=== PATIENT | male | born 1960 | race Caucasian/White ===

== ENCOUNTER 2018-06-18 10:55 | Inpatient (IN) ==
[2018-06-18 11:21] VITALS: BMI 45.4
[2018-06-18] MEDS ORDERED: WARFARIN - PHARMACY CONSULT MC ONE (12:09)
[2018-06-18] MEDS ORDERED: VANCOMYCIN - PHARMACY CONSULT MC ONE (12:12)
[2018-06-18] MEDS ORDERED: NS 1,000 ML IV ONE (14:07)
[2018-06-18] MEDS: HYDROCODONE/APAP 5mg/325mg TABLET PO PRN (14:07)
[2018-06-18] MEDS ORDERED: CEFTRIAXONE 1 G in NS 100 ML IV SCH (14:15)
[2018-06-18] MEDS ORDERED: MORPHINE SULFATE 2mg INJECTION IVP PRN (14:19)
[2018-06-18] MEDS ORDERED: ONDANSETRON 4 MG/2 ML INJECTION IVP PRN (14:19)
--- NOTE | 2018-06-18 14:25 | History & Physical Report ---
History of Present Illness Date: 06/18/18 Chief complaint: fever, leg pain HPI: Patient is a 57-year-old male who presented to Dr. Hwang's office this morning with complaint of leg pain and swelling which started last night. This was accompanied by a fever as well. Dr. Hwang evaluated patient and recommended direct admission for inpatient treatment of cellulitis given his comorbidities including artificial aortic valve and morbid obesity. Patient reports up until last night he was feeling well. He had no injury to the leg which he is aware of. He does have a remote history of surgery to the Achilles tendon secondary to rupture. He is on Coumadin for his artificial valve. Has no history of DVT. No previous history of cellulitis. He took Tylenol this morning for the pain. He is currently complaining of significant pain. Review of Systems All systems PM: 10-point ROS was reviewed, no additional remarkable complaints except (right lower leg pain, swelling, fever, chronic shortness of breath with exertion, slight cough (chronic per patient)) Past Medical History Medical History: Medical History (Last Reviewed 06/18/18 @ 10:31 by Win Pena LPN) Dyslipidemia HTN (hypertension) Medical History Updates: Sleep apnea, morbid obesity, artificial aortic valve, history of kidney cancer Surgical History: aortic valve replaced 06/25. kidney reomved - hx of kidney ca 05/25. ruptured achilles tendon on R leg - surgery 2007. tonsilectomy as a child. vasectomy 1989. Valve aneurysm repair: Dr. Hoang. Content Checker: Dr. Jose Kevin. Kidney: Dr. Kwok. Kidney surgery: Dr. Patel. Renal inusfficiency/Nephrology: Dr. 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 Hwang Content Checker- Dr. Kevin Medications Home Medications Medication Instructions Recorded Confirmed Type aspirin 81 mg tablet,delayed 81 mg PO DAILY tab 07/16/17 06/18/18 History release Norvasc (amlodipine) 10 mg tablet 10 mg PO DAILY #90 tab 05/18/18 06/18/18 Rx Warfarin Sodium [Coumadin] 10 mg PO DAILY 06/18/18 06/18/18 History Allergies Allergy/AdvReac Type Severity Reaction Status Date / Time Iodinated Contrast- Oral and Allergy Severe RASH Verified 06/18/18 11:35 IV Dye Exam Vital Signs: Temperature 101.7 F H 06/18/18 11:20 Pulse Rate 112 H 06/18/18 11:20 Respiratory Rate 22 06/18/18 14:07 Blood Pressure 158/72 H 06/18/18 11:20 Pulse Oximetry 94 06/18/18 11:20 Height/Weight/BMI: Height 1.85 m Weight 156.2 kg Body Mass Index 45.4 - Constitutional Present: no acute distress, well nourished, well developed, morbidly obese - Routine HEENT Exam Head: Present: normocephalic, atraumatic Eye: Present: EOMI, PERRL ENT: Present: mucous membranes moist, oropharynx clear - Routine Neck Exam Present: supple. Absent: lymphadenopathy, thyromegaly - Routine Respiratory Exam Present: CTA bilaterally. Absent: wheezes - Routine Cardiovascular Exam Present: RRR, murmur, click - Routine Abdominal Exam Present: soft, normoactive bowel sounds. Absent: tenderness, distended - Routine Extremities Exam Present: normal capillary refill Comments: Right lower extremity with warmth, erythema and edema extending from ankle to distal to the knee. He is most tender posteriorly mid calf and distally. He has an unroofed vesicle which is draining clear fluid located on the scar from his previous Achilles surgery. There is no evidence of abscess. He has pitting edema bilaterally right greater than left. Edema on the left is chronic. He also has erythema and skin changes on the left lower extremity from chronic venous stasis. - Routine Skin Exam Present: dry, warm - Routine Neurological Exam Present: alert, oriented X3, CN II-XII intact - Routine Psychiatric Exam Present: normal affect, cooperative Results - Labs CBC & Chem 7: 06/18/18 13:00 06/18/18 13:00 Microbiology Results: Microbiology 06/18/18 13:14 Peripheral/Iv Start Blood Culture - Preliminary Culture Initiated - Results Pending 06/18/18 13:00 Peripheral/Iv Start Blood Culture - Preliminary Culture Initiated - Results Pending Assessment and Plan (1) Cellulitis Current visit: Yes Status: Acute Assessment and Plan: Assessment Sepsis (SIRS: Fever, leukocytosis. Source: Skin) - lactate normal Right lower extremity cellulitis Morbid obesity-BMI 45 Hypertension Artificial aortic valve-chronic Coumadin therapy Sleep apnea History of kidney cancer (right nephrectomy) JOSÉ on CKD -POA Plan Admit, observation for IV antibiotics for treatment of right lower extremity cellulitis. CBC, CMP, INR, lactate and blood cultures drawn on admission. Initiate vancomycin and ceftriaxone for treatment of cellulitis. Pharmacy consult for vancomycin. Bolus one liter normal saline. Pharmacy to manage Coumadin. Continue amlodipine for hypertension. Coumadin for DVT prophylaxis (and artificial valve) CBC and BMP in a.m. to follow leukocytosis and renal function. [place], morphine PRN pain. Full code Dr. Hwang-PCP. 06/18/2018-3:45 PM-I examined the patient independently. I reviewed this chart, the patient history, and the CARD STRIPPER's/PA's documented findings as above. We discussed and formulated the assessment and plan as above with the additions below.-Dr. Ji The patient was seen this afternoon in his room. He states the pain in his leg started this morning and woke him up from sleep. He is having pain in his right groin and pain in the left calf and down into his foot. He states the pain was an 8 on a scale of 1-10 but is now a 5. He has been diaphoretic and nauseated. He vomited this morning. He was doing a lot of gardening recently and thought his leg might be painful from that and then he noticed the redness. He did not have any skin wounds or punctures while gardening. He does have a very small area of skin breakdown over the right Achilles tendon where he had previously had surgery and has a scar. There is very minimal serosanguineous drainage on the dressing that was placed over this area. The patient denies chest pain or shortness of breath. He is obese and has sleep apnea but has not tolerated CPAP in the past. On exam he is alert and in mild distress secondary to pain. HEENT reveals sclerae to be anicteric and oropharynx is moist. Neck is supple. Chest is clear to auscultation. Cardiovascular reveals a regular rate and rhythm. Abdomen is soft and nontender. Left lower extremity reveals some chronic venous stasis changes over the calf and +1 edema in his foot. Right lower extremity reveals chronic venous stasis changes in the. He has erythema of the entire calf and spreading down to the medial portion of his foot. He has +1-2 edema of the right foot. The right lower extremity is warm to touch and very tender to touch compared to the left lower extremity. He has some splotchy erythema in the right medial thigh and tender adenopathy in the groin on the right. Lab reveals a white count of 24.3 with 12% bands and 80% neutrophils Lactate was normal at 1.7. Bicarbonate was 29. BUN 24. Creatinine 1.6. Impression Sepsis Cellulitis right lower extremity-rapidly progressing Chronic lymphedema of the legs Right leg pain secondary to cellulitis Prosthetic aortic valve Chronic anticoagulation with Coumadin-INR is therapeutic Chronic kidney disease Morbid obesity Obstructive sleep apnea for which he has not tolerated CPAP IV contrast allergy Plan Admit as inpatient. I think the patient will need more than 2 midnights overnight in the hospital for treatment of his cellulitis with sepsis. Vancomycin and Rocephin were initiated. May need further antibiotic adjustment. Blood cultures were obtained. Check C-reactive protein and CPK CT right lower extremity to rule out necrotizing fasciitis Repeat lactate Continue IV fluids Monitor on oximetry with obstructive sleep apnea and use of narcotics for pain control DVT Prophylaxis: Coumadin - Physician Narrative Narrative: Date: 06/18/18 Time: 1421 Hospital Course Summary Disclaimer: The visit summary below is not to be considered part of the above Progress Note. Hospital Course: 06/18/18 Admit, observation for IV antibiotics for treatment of right lower extremity cellulitis. CBC, CMP, INR, lactate and blood cultures drawn on admission. Initiate vancomycin and ceftriaxone for treatment of cellulitis. Pharmacy consult for vancomycin. Bolus one liter normal saline. Pharmacy to manage Coumadin. Continue amlodipine for hypertension. Coumadin for DVT prophylaxis (and artificial valve) CBC and BMP in a.m. to follow leukocytosis and renal function. [place], morphine PRN pain. Full code Dr. Hwang-PCP.
--- NOTE | 2018-06-18 14:43 | Pharmacy Consult-Antibiotics ---
Pharmacy Consult-Vancomycin - Laboratory Information WBC 24.3 T/MM3 (4.5-11.0) H 06/18/18 13:00 BUN 24.0 MG/DL (9-20) H 06/18/18 13:00 Creatinine 1.6 mg/dL (0.8-1.5) H 06/18/18 13:00 VANCOMYCIN THERAPY: Dx: RLE Cellulitis. Comorbidities. Will adjust for upper range of therapeutic levels: 15-20mcg/ml Renal Fx compromised. Will watch closely. Start with VANCOMYCIN 2000mg IV LOADING DOSE now, then 1500mg IV q12hr starting this evening. Will confirm levels prior to dose tomorrow am. Thank you
--- NOTE | 2018-06-18 14:50 | Pharmacy Consult ---
Pharmacy Consult-Warfarin - Laboratory Information 06/18/18 06/18/18 06/18/18 13:00 13:00 13:14 Hgb 14.7 Hct 43.7 INR 2.60 H AST 41 ALT 33 Albumin 4.1 WARFARIN THERAPY: Hx of artificial aortic valve replacement 2009. Warfarin home dose is 10mg daily. Presents within therapeutic range. Will continue the warfarin at 10mg today. No drug-drug interactions. Anticoagulation therapy is stable at this time. Thank you
[2018-06-18] MEDS ORDERED: METOCLOPRAMIDE 10mg/2ml INJECTION IVP PRN (15:25)
[2018-06-18] MEDS: ACETAMINOPHEN 500 MG TABLET PO PRN ×2 (15:27→22:05)
[2018-06-18] MEDS ORDERED: WARFARIN 5 MG TABLET PO ONE (17:00)
--- NOTE | 2018-06-18 17:12 | General Surgery Consult Note ---
Consult date: 06/18/18 Attending Physician: Leigh Ji MD [facility], [facility] Patient Stated Medical History Hearing Loss Yes Cardiac Arrhythmia Yes Hypotension Yes Asthma Yes Pneumonia Yes: young Sleep Apnea Yes Gastroesophageal Reflux Yes: 10 years ago Disease Hx Incontinence Yes Hx Kidney Stones Yes: years ago Osteoarthritis Yes Cellulitis Yes: currently Clinic Medical History (Last Reviewed 06/18/18 @ 10:31 by Win Pena LPN) Dyslipidemia (Acute Medical) HTN (hypertension) (Acute Medical) Medical History Updates: Sleep apnea, morbid obesity, artificial aortic valve, history of kidney cancer Surgical History: aortic valve replaced 06/25. kidney reomved - hx of kidney ca 05/25. ruptured achilles tendon on R leg - surgery 2007. tonsilectomy as a child. vasectomy 1989. colonoscopy tubular adenoma 04/23/2010 [facility]. EGD with dilatation esophagitis, gastritis, H.Pylori neg 04/23/2010 [facility]. Valve aneurysm repair: Dr. Hoang. Baggage Porter: Dr. Jose Kevin. Kidney: Dr. Kwok. Kidney surgery: Dr. Patel. Renal inusfficiency/Nephrology: Dr. 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 Current residence: Apartment/Private Home Medications Home Medications Medication Instructions Recorded Confirmed Type aspirin 81 mg tablet,delayed 81 mg PO DAILY tab 07/16/17 06/18/18 History release Norvasc (amlodipine) 10 mg tablet 10 mg PO DAILY #90 tab 05/18/18 06/18/18 Rx Warfarin Sodium [Coumadin] 10 mg PO DAILY 06/18/18 06/18/18 History Allergies Allergy/AdvReac Type Severity Reaction Status Date / Time Iodinated Contrast- Oral and Allergy Severe RASH Verified 06/18/18 11:35 IV Dye Review of Systems 10-point ROS: negative except for HPI and the following: - General General: Present: fever, chills - Respiratory Respiratory: Present: wheezing, difficulty breathing (with exertion), cough, sleep apnea - Musculoskeletal Musculoskeletal: Present: other (leg cramps) - Hematologic/Lymphatic Hematologic/Lymphatic: Present: easy bruising, use of blood thinners (warfarin ) - Vital Signs Last Vital Signs Temp 101.4 F H 06/18/18 16:32 Pulse 101 H 06/18/18 16:32 Resp 20 06/18/18 16:32 BP 129/57 06/18/18 16:32 Pulse Ox 90 06/18/18 16:32 - Laboratory Result Diagrams: 06/18/18 13:00 06/18/18 13:00 - Microbiogy Microbiology 06/18/18 13:14 Peripheral/Iv Start Blood Culture - Preliminary Culture Initiated - Results Pending 06/18/18 13:00 Peripheral/Iv Start Blood Culture - Preliminary Culture Initiated - Results Pending General Surgery Results - Results Labs: 06/18/18 13:00 06/18/18 13:00 Microbiology: Microbiology 06/18/18 13:14 Peripheral/Iv Start Blood Culture - Preliminary Culture Initiated - Results Pending 06/18/18 13:00 Peripheral/Iv Start Blood Culture - Preliminary Culture Initiated - Results Pending
--- NOTE | 2018-06-18 17:19 | CT Scan Report ---
Indication: Right leg swelling and pain with edema, evaluate for necrotizing fasciitis PROCEDURE: CT LE RT wo con: Encounter: Initial Comparison: None Technique: Axial CT images were performed through the right lower extremity without intravenous contrast. Coronal and sagittal two-dimensional reformats. Automated Exposure Control and Iterative Reconstruction dose reducing techniques were utilized. Findings: Imaging shows no evidence of subcutaneous gas. There are presumably reactive mildly prominent right inguinal lymph nodes measuring up to 1 cm in short axis dimension. There are additional enlarged lymph nodes in the right thigh medially measuring up to 1.8 cm in short axis dimension with surrounding soft tissue inflammation and induration. There is no loculated fluid collection or abscess appreciated. Bony structures are intact. No acute fracture or lytic osseous lesion. Below the knee there is fairly diffuse subcutaneous edema which becomes progressively worse towards the ankle. Again no subcutaneous gas is identified. There is mild fatty atrophy of the calf musculature. No hematoma. No localized fluid collection identified. No lytic bony lesions seen. The remaining muscular attenuation is normal. Impression: Severe cellulitis in the lower leg and calf with associated reactive adenopathy and infection tracking along the medial aspect of the right thigh. No subcutaneous gas or abscess identified. .
[2018-06-18] MEDS: POLYETHYL GLYCOL 3350 17gm PACKET PO SCH (18:10)
[2018-06-18] MEDS ORDERED: WARFARIN 5 MG TABLET PO SCH (20:00)
[2018-06-18] MEDS: PIPERACILLIN/TAZOBACTAM 3.375 GM in NS 100 ML IV SCH (20:03)
--- NOTE | 2018-06-18 20:52 | Consultation ---
DATE OF CONSULTATION 06/18/2018 FINDINGS Mr. Eubanks is a 57-year-old gentleman whom I was asked to see today as a result of marked tenderness and cellulitis involving his right lower extremity. Upon questioning the patient he informs me that he has had "leg problems" for a number of years. He states that his legs have been somewhat discolored for several years. The patient did share with me that in the past he has suffered from a rupture of his right Achilles. I questioned the patient whether or not he has had any history for open wounds involving his lower extremities. Patient states that he has had a wound involving his right lower extremity over the last several months. He contributes this to a "bad sunburn." Patient states that he had noticed some slight discomfort within his right lower extremity earlier this week but this morning at 4 o'clock he was awakened with severe pain occurring in his right calf region. He states it felt as if he was having a "bad cramp." Patient states that the pain was quite severe in nature. He also stated that he began to feel somewhat chilled in nature. Patient states that he then presented to his primary care physician for further evaluation and has subsequently been admitted to our hospital for further care. The pain involving his right lower extremity is made worse upon palpation. Pain is aggravated with attempt at ambulation. Discomfort is somewhat alleviated by "lying down and resting." Discomfort involving the right calf does radiate up into his right thigh region as well. PAST MEDICAL HISTORY, PAST SURGICAL HISTORY, MEDICATIONS, ALLERGIES, SOCIAL HISTORY, FAMILY HISTORY, REVIEW OF SYSTEMS Performed by my nurse practitioner, Robert Rodrigues APRN. PHYSICAL EXAMINATION GENERAL: Mr. Eubanks is a 57-year-old gentleman who does appear somewhat ill. He did appear to be having a component of fever and chills. He was requesting an additional blanket. VITAL SIGNS: Temperature 101.4, pulse elevated at 101. Respiratory rate 20. Blood pressure 129/57, SAO2 90% on room air. HEENT: Normocephalic. Pupils are equally round and react to light and accommodation. CHEST: Audible wheezes were noted even without the stethoscope. Upon auscultation the patient was found have bilateral rhonchi. HEART: Rate and rhythm. Tachycardia was noted. ABDOMEN: Soft, nontender. No tenderness noted. No evidence for hepatosplenomegaly or other abnormal masses. EXTREMITIES: Visualization of the lower extremities does reveal the skin to be hemosiderin-laden consistent with chronic venous insufficiency. There is a Mepilex dressing present overlying the right posterior ankle region. One could see some drainage upon the Mepilex. Upon removing the Mepilex dressing from the right posterior ankle one can see a prior surgical incision consistent with his prior history of a ruptured Achilles tendon. There is an incision perhaps about 6-7 cm long overlying the anatomic location of the Achilles tendon. Along this incision there is a small opening that is draining some clear fluid from the opening itself. Visualization of the skin does not reveal any ecchymotic changes of the skin. There are no "purplish-like blisters" upon the skin. The right calf and right ankle region does appear edematous and more erythematous in nature in comparison to the left. Upon palpation of the right anterior tibial region and calf the skin is warm to the touch, consistent with cellulitis. Palpation does elicit tenderness to the patient but the patient did not experience severe pain upon palpation. No evidence for subcutaneous crepitus was noted upon palpation. Upon palpation of the right thigh no significant tenderness was noted. No evidence for subcutaneous crepitus was appreciated. NEURO: Cranial nerves II-XII grossly intact. Patient is without focal motor or sensory deficits. LABORATORY/RADIOGRAPHIC EVALUATION The patient had a white count of 24,000 upon admission. Hemoglobin is 14.7. He did have a significant left shift with 80% neutrophils and 12% bands. CMP was obtained and his BUN and creatinine were elevated at 24.0 and 1.6, respectively. CRP was elevated at 52.9. Total creatinine kinase was elevated at 32. Procalcitonin level was elevated at 12.73. Plasma lactate level was normal at 0.4. Blood cultures have been obtained and are pending at time of dictation. The patient did have a CT scan of his right lower extremity. There was no evidence for subcutaneous air/gas to suggest necrotizing fasciitis. There was severe cellulitis noted involving the lower extremity with associated reactive adenopathy and infection tracking along the medial aspect of the right thigh. Again, no subcutaneous gas or abscess was identified. ASSESSMENT 57-year-old male with history for chronic venous insufficiency involving lower extremities who presents with marked cellulitis involving right lower extremity with associated sepsis. Patient with associated medical comorbidities including morbid obesity, hypertension, artificial aortic valve, sleep apnea, history for kidney cancer, and a history for chronic kidney disease. Patient without radiographic or physical findings to suggest necrotizing fasciitis. PLAN I informed the patient that from a physical examination standpoint I did not feel that he was suffering from necrotizing fasciitis. He does, however, have a severe infection involving his right lower extremity. CT scan did not reveal any definitive evidence for necrotizing fasciitis. I am concerned, however, with the degree of cellulitis that is present but I do not feel at this point in time we need to proceed with emergent exploration of his lower extremity. I would recommend that we broaden his antibiotic coverage and place him on Zosyn in place of the Kefzol and continue with vancomycin for possible MRSA. I would recommend that we go ahead and culture the drainage from the right posterior ankle region. Hopefully with antibiotic therapy his leukocytosis and right lower extremity discomfort/pain will improve. Will continue to follow the patient closely. If cellulitis would progressively become worse or his clinical status worsens we may potentially proceed with surgical exploration of the right calf to rule in or rule out necrotizing fasciitis with more certainty. Will continue to follow the patient closely. JIMENEZ
[2018-06-19] MEDS ORDERED: CEFAZOLIN 1 G in NS 100 ML IV SCH (01:00)
[2018-06-19] MEDS: PIPERACILLIN/TAZOBACTAM 3.375 GM in NS 100 ML IV SCH ×5 (01:36→23:37)
[2018-06-19] MEDS: HYDROCODONE/APAP 5mg/325mg TABLET PO PRN ×2 (04:32→11:28)
[2018-06-19] MEDS: NS 1,000 ML IV SCH ×2 (06:04→21:08)
[2018-06-19] MEDS: POLYETHYL GLYCOL 3350 17gm PACKET PO SCH (08:06)
[2018-06-19] MEDS: ASPIRIN *EC* 81 MG TABLET PO SCH (08:07)
[2018-06-19] MEDS ORDERED: AMLODIPINE 10 MG TABLET PO SCH (09:00)
--- NOTE | 2018-06-19 09:08 | Pharmacy Consult ---
Pharmacy Consult-Warfarin - Laboratory Information 06/18/18 06/18/18 06/18/18 13:00 13:00 13:14 Hgb 14.7 Hct 43.7 INR 2.60 H AST 41 ALT 33 Albumin 4.1 06/19/18 06/19/18 04:11 04:11 Hgb 13.8 Hct 42.7 INR 2.63 H AST ALT Albumin - Consult Information COUMADIN CONSULT (RECURRING): 57 yr old male 6'1" 160.8kg admitted for cellulitis. He has an artificial aortic valve. His home med dose of warfarin is 10 mg daily. Therapeutic INR range is 2-3. He is currently on Zosyn and Vancomycin for his cellulitis. These antibiotics can cause his INR to increase. DATE INR DOSE 06/18 2.60 10 MG 06/19 2.63 Will give 7.5 MG Warfarin today. Pharmacy will continue to monitor the INR and adjust the warfarin dose as needed. Since the antibiotics were started yesterday, it will take a couple of days to see the effect on the INR. Thank you. Analy Vallejo, MarijaD
--- NOTE | 2018-06-19 09:52 | Progress Note ---
- Date 06/19/18 Subjective: 57-year-old male who presented to Dr. Hwang's office the morning of admission with complaint of leg pain and swelling which started the night prior. This was accompanied by a fever. Dr. Hwang evaluated patient and recommended direct admission for inpatient treatment of cellulitis given his comorbidities including artificial aortic valve and morbid obesity. Patient reports up until the night prior he was feeling well. He had no injury to the leg which he is aware of. He does have a remote history of surgery to the Achilles tendon secondary to rupture. He is on Coumadin for his artificial valve. Has no history of DVT. No previous history of cellulitis. He took Tylenol this morning for the pain. When seen by me this am, he is resting in bed. Oxygen by nasal cannula in place. He does report having used the BiPAP for a while last night. Is approximately 3 hours recorded while he was on the BiPAP. He denies feeling short of breath. He is not been having any fever since 4 AM at which time it was 101.2. He denies lightheadedness or dizziness. He denies cough or sputum production. He denies any chest pain, or pressure. He denies palpitations. He denies any nausea, vomiting or diarrhea. He reports having a bowel movement yesterday. Eating well. He is up to the bathroom in the room only. He states his legs do hurt when he is bearing weight. He denies any urinary issues. His legs are still painful and swollen but appear to be slightly better with more receding erythema from the outlines drawn on his legs particularly on the right. Objective Vital signs: Temperature 98.6 F 06/19/18 07:10 Pulse Rate 88 06/19/18 07:10 Respiratory Rate 16 06/19/18 07:10 Blood Pressure 141/67 H 06/19/18 07:10 Pulse Oximetry 93 06/19/18 09:24 Height/Weight/BMI: Height 1.85 m Weight 160.8 kg Body Mass Index 45.4 Comments: Gen: alert and oriented. NAD. Falls asleep easily Skin: warm and dry, venous stasis discoloration of bilateral lower extremities. Erythema of the bilateral lower extremities, right >left. Warm to touch, particularly on the right lower extremity HEENT: NC/AT PERRL, EOMI, Sclera, lids and conjunctiva wnl. MMM. OP clear. Neck: short, thick, No JVD, Carotids 2+ without bruits. Lungs: diminished, clear without rales, rhonchi or wheezes CV: slightly irregular, soft murmur, no rubs or gallops. DP pulses 1+, radial pulses 2+, 2+ edema bilaterally Abd: obese, soft. +BS, NT/ND. MS: TRIPP Neuro: No focal deficit Psy: Appropriate mood and affect Results - Labs CBC & Chem 7: 06/19/18 04:11 06/19/18 04:11 Microbiology Results: Microbiology 06/18/18 18:50 Leg, Right Lower Superficial Wound Culture - Preliminary Culture Initiated - Results Pending 06/18/18 13:14 Peripheral/Iv Start Blood Culture - Preliminary Culture Initiated - Results Pending 06/18/18 13:00 Peripheral/Iv Start Blood Culture - Preliminary Culture Initiated - Results Pending Assessment and Plan (1) Cellulitis Current visit: Yes Status: Acute Assessment and Plan: Assessment and plan: sepsis -resolving -skin source with right lower extremity cellulitis -wound culture showing staph aureus, awaiting sensitivities -patient maintained on vancomycin and Zosyn -blood cultures are still pending Right lower extremity cellulitis -wound care -IV vancomycin and Zosyn -CRP markedly elevated but CT scan negative for evidence of necrotizing fasciitis Hypertension -perhaps amlodipine isn't the best option due to his edema -will try Coreg for alpha and beta benefits as he has plenty of HR Bilateral lower extremity edema -likely at least in part related to noncompliance on CPAP -silvina wrap to bilateral lower extremities -unknown diastolic function, systolic function or right heart status, no echo documented since 2009 prior to his surgery -consider echo if not done elsewhere in the recent past Chronic hypoxia -on 3 L oxygen by nasal cannula currently Obstructive sleep apnea -states he no longer has a machine at home -would certainly benefit from having one and using it Acute on chronic kidney disease -IV fluids -follow closely with vancomycin dosing -single kidney as he is post right nephrectomy due to renal cell carcinoma in 2009 Valvular heart disease -that is post mechanical AVR in 2010 -chronic Coumadin anticoagulation -INR therapeutic Prophylaxis -Coumadin Full code Dr. Hwang-PCP. DVT Prophylaxis: Coumadin - Physician Narrative Narrative: Date: 06/19/18 Time: 948 Hospital Course Summary Disclaimer: The visit summary below is not to be considered part of the above Progress Note. Hospital Course: 06/18/18 Admit, observation for IV antibiotics for treatment of right lower extremity cellulitis. CBC, CMP, INR, lactate and blood cultures drawn on admission. Initiate vancomycin and ceftriaxone for treatment of cellulitis. Pharmacy consult for vancomycin. Bolus one liter normal saline. Pharmacy to manage Coumadin. Continue amlodipine for hypertension. Coumadin for DVT prophylaxis (and artificial valve) CBC and BMP in a.m. to follow leukocytosis and renal function. [place], morphine PRN pain. Full code Dr. Hwang-PCP.
--- NOTE | 2018-06-19 10:41 | Pharmacy Consult-Antibiotics ---
Pharmacy Consult-Vancomycin - Laboratory Information WBC 21.0 T/MM3 (4.5-11.0) H 06/19/18 04:11 BUN 30.0 MG/DL (9-20) H 06/19/18 04:11 Creatinine 2.1 mg/dL (0.8-1.5) H D 06/19/18 04:11 Procalcitonin 12.73 NG/ML H* 06/18/18 13:01 Vancomycin Trough 23.40 ug/mL (15-20) H* 06/19/18 09:11 - Consult Information VANCOMYCIN CONSULT: DAY 2 Today's SCr = 2.1 mg/dl. Vancomycin dose had to be given early causing the trough to be drawn at the wrong time. The 23.4 trough is invalid. It is not a trough. Will draw another trough tomorrow. Will continue to give Vancomycin 1500 mg IV q12hrs. Thank you. Analy Vallejo, PharmD
--- NOTE | 2018-06-19 11:34 | Progress Note ---
DATE OF SERVICE 06/19/2018 FINDINGS Mr. Eubanks was seen today on rounds. He was somewhat somnolent upon entering the room but did awaken and was appropriate when spoken to. He did inform me that he is having less pain today. He informs me that he is not having as much fever and chills as he did yesterday when I had seen him in the evening. Overall, he states that he believes he is improving. PHYSICAL EXAM VITAL SIGNS: Patient has been afebrile this morning with a temperature of 98.6 , pulse 88, respirations 16, blood pressure 141/67, SAO2 93% on 3 L/nasal cannula. HEENT: Normocephalic. Pupils are equally round and react to light and accommodation. CHEST: Clear to auscultation bilaterally. HEART: Regular rate and rhythm. Normal S1 and S2 without gallops, murmurs or clicks. ABDOMEN: Palpation of the abdomen reveals it to be soft and nontender. I do not appreciate any evidence for hepatosplenomegaly or other abnormal masses. EXTREMITIES: Attention was focused to the right lower extremity. He did have an Nelson wrap in place that I removed so that I could visibly see the skin. There is less edema. The erythema does appear to be dissipating. There is no "purplish" discoloration of the skin to suggest an underlying necrotic process. Palpation of the calf still reveals some tenderness but definitely less tenderness in comparison to yesterday. He does have a small opening overlying the posterior ankle/Achilles region. There is not a dressing present over this today. ASSESSMENT 57-year-old gentleman with open wound involving right lower extremity, history for chronic venous insufficiency, recent development of marked cellulitis with associated sepsis. Patient making clinical improvement with current medical regimen/initiation of broad-spectrum antibiotics. LABORATORY/RADIOGRAPHIC EVALUATION I have reviewed lab work from this morning and his white count remains elevated but is on a downward trend from 24,000 to 21,000 today. Bandemia has resolved but still has a left shift with 95% neutrophils. BUN and creatinine are elevated at 30 and 2.1, respectively. PLAN Continuation of current care. Will write to place Mepilex dressing overlying wound upon right posterior ankle/Achilles range region and change this on a every [id number] basis. Continue with compression. Continue to follow closely. I do feel the patient is making clinical improvement and will continue to follow closely. [facility]
[2018-06-19] MEDS ORDERED: WARFARIN 7.5 MG TABLET PO SCH (12:00)
[2018-06-19] MEDS: SENNA + DOCUSATE TABLET PO SCH (21:09)
[2018-06-20] MEDS: NS 1,000 ML IV SCH ×3 (00:55→22:16)
[2018-06-20] MEDS: PIPERACILLIN/TAZOBACTAM 3.375 GM in NS 100 ML IV SCH (05:03)
[2018-06-20] MEDS: CARVEDILOL 6.25 MG TABLET PO SCH ×2 (08:23→16:35)
[2018-06-20] MEDS: POLYETHYL GLYCOL 3350 17gm PACKET PO SCH (08:23)
[2018-06-20] MEDS: ASPIRIN *EC* 81 MG TABLET PO SCH (08:24)
--- NOTE | 2018-06-20 08:35 | Progress Note ---
- Date 06/20/18 Subjective: 57-year-old male who presented to Dr. Hwang's office the morning of admission with complaint of leg pain and swelling which started the night prior. This was accompanied by a fever. Dr. Hwang evaluated patient and recommended direct admission for inpatient treatment of cellulitis given his comorbidities including artificial aortic valve and morbid obesity. Patient reports up until the night prior he was feeling well. He had no injury to the leg which he is aware of. He does have a remote history of surgery to the Achilles tendon secondary to rupture. He is on Coumadin for his artificial valve. Has no history of DVT. No previous history of cellulitis. He took Tylenol this morning for the pain. When seen by me this morning, he is up in the reclining chair. His legs are wrapped in ERNESTINA wraps. He is ambulating to and from the bathroom on his own. There is some discomfort with ambulation on that right leg. He still has not had a bowel movement. He is much more awake this morning than he was yesterday. He reports he made it pretty much all night with the BiPAP in place. I reiterated how important it was for his heart to be compliant with his BiPAP. He denies feeling short of breath. He denies lightheadedness or dizziness. He denies cough or sputum production. He denies any chest pain, or pressure. He denies palpitations. He denies any nausea, vomiting or diarrhea. Eating fair. He denies any urinary issues. He had a few intermittent fevers yesterday. The last one recorded was 2316 last night at 100.3. Objective Vital signs: Temperature 97.8 F 06/20/18 07:15 Pulse Rate 85 06/20/18 07:15 Respiratory Rate 20 06/20/18 07:15 Blood Pressure 138/81 06/20/18 07:15 Pulse Oximetry 93 06/20/18 07:15 Height/Weight/BMI: Height 1.85 m Weight 160.4 kg Body Mass Index 45.4 Comments: Gen: alert and oriented. NAD. Much more awake this morning. Skin: warm and dry, HEENT: NC/AT PERRL, EOMI, Sclera, lids and conjunctiva wnl. MMM. OP clear. Neck: short, thick, No JVD, Carotids 2+ without bruits. Lungs: diminished, clear without rales, rhonchi or wheezes CV: regular, soft murmur, crisp prosthetic click, no rubs or gallops. Unable to palpate pulses through ERNESTINA wraps. There is still 2+ edema. Erythema noted distal to end of wrap. None seen proximal. Abd: obese, soft. +BS, NT/ND. MS: JOSEE Neuro: No focal deficit Psy: Appropriate mood and affect Results - Labs CBC & Chem 7: 06/20/18 08:27 06/20/18 08:27 Microbiology Results: Microbiology 06/18/18 18:50 Leg, Right Lower Gram Stain - Final 06/18/18 18:50 Leg, Right Lower Superficial Wound Culture - Preliminary Staphylococcus aureus 06/18/18 13:00 Peripheral/Iv Start Blood Culture - Preliminary No Growth After 1 Day 06/18/18 13:14 Peripheral/Iv Start Blood Culture - Preliminary No Growth After 1 Day Assessment and Plan (1) Cellulitis Current visit: Yes Status: Acute Assessment and Plan: Assessment and plan: sepsis -skin source with right lower extremity cellulitis -wound culture showing staph aureus, armas sensitive, will change to Nafcillin -patient maintained on vancomycin and Zosyn-DC both and start Nafcillin now that sensitivities are back. -blood cultures are still NGTD -pro-calcitonin higher today, recheck thursday -CRP markedly higher today, Repeat in am. MRI in am of right foot. -leukocytosis is trending down and we are having less fevers Right lower extremity cellulitis -wound care -IV vancomycin and Zosyn---stop Zosyn to protect the kidneys -CRP markedly elevated but CT scan negative for evidence of necrotizing fasciitis -CRP much more elevated today, will plan for MRI without contrast tomorrow -Arterial US of right lower ext in am. Acute renal failure on chronic kidney disease -IV fluids-continue, increase to 150ml/hr -single kidney as he is post right nephrectomy due to renal cell carcinoma in 2009 -will stop Zosyn and vanco, start nafcillin -made need nephrology consult -Place Pretty catheter for accurate I & O, and rule out obstruction -renal ultrasound in a.m. Hypertension -Good control on coreg Bilateral lower extremity edema -likely at least in part related to noncompliance on CPAP -ernestina wrap to bilateral lower extremities -unknown diastolic function, systolic function or right heart status, no echo documented since 2009 prior to his surgery -repeat echo in a.m. Chronic hypoxia -on 0-1 L oxygen by nasal cannula Obstructive sleep apnea -states he no longer has a machine at home -would certainly benefit from having one and using it Valvular heart disease -that is post mechanical AVR in 2009 -chronic Coumadin anticoagulation -INR therapeutic Prophylaxis -Coumadin Full code Dr. Gomez. DVT Prophylaxis: Coumadin - Physician Narrative Narrative: Date: 06/20/18 Time: 831 Hospital Course Summary Disclaimer: The visit summary below is not to be considered part of the above Progress Note. Hospital Course: 06/18/18 Admit, observation for IV antibiotics for treatment of right lower extremity cellulitis. CBC, CMP, INR, lactate and blood cultures drawn on admission. Initiate vancomycin and ceftriaxone for treatment of cellulitis. Pharmacy consult for vancomycin. Bolus one liter normal saline. Pharmacy to manage Coumadin. Continue amlodipine for hypertension. Coumadin for DVT prophylaxis (and artificial valve) CBC and BMP in a.m. to follow leukocytosis and renal function. [place], morphine PRN pain. Full code Dr. Hwang-PCP.
--- NOTE | 2018-06-20 09:16 | Pharmacy Consult ---
Pharmacy Consult-Warfarin - Laboratory Information 06/18/18 06/18/18 06/18/18 13:00 13:00 13:14 Hgb 14.7 Hct 43.7 INR 2.60 H AST 41 ALT 33 Albumin 4.1 06/19/18 06/19/18 06/20/18 04:11 04:11 08:27 Hgb 13.8 Hct 42.7 INR 2.63 H 2.32 H AST ALT Albumin - Consult Information COUMADIN CONSULT (RECURRING): 57 yr old male 6'1" 160.8kg admitted for cellulitis. He has an artificial aortic valve. His home med dose of warfarin is 10 mg daily. Therapeutic INR range is 2-3. He is currently on Zosyn and Vancomycin for his cellulitis. These antibiotics can cause his INR to increase. 7.5 MG warfarin was given yesterday and the INR decreased instead of increasing from the antibiotics. Therefore will give patient his home med dose of 10 MG while continuing daily monitoring. DATE INR DOSE 06/18 2.60 10 MG 06/19 2.63 7.5 MG 06/20 2.32 Will give 10 MG Warfarin today Pharmacy will continue to monitor the INR and adjust the warfarin dose as needed. Thank you. Analy Vallejo, MarijaD
--- NOTE | 2018-06-20 09:51 | Pharmacy Consult-Antibiotics ---
Pharmacy Consult-Vancomycin - Laboratory Information WBC 17.8 T/MM3 (4.5-11.0) H 06/20/18 08:27 BUN 37.0 MG/DL (9-20) H 06/20/18 08:27 Creatinine 3.0 mg/dL (0.8-1.5) H D 06/20/18 08:27 Procalcitonin 25.92 NG/ML H* 06/20/18 08:27 Vancomycin Trough 18.55 ug/mL (15-20) 06/20/18 08:27 - Consult Information VANCOMYCIN CONSULT: DAY 3 Dx: Cellulitis Today's SCr = 3.0 mg/dl. Vancomycin Trough = 18.55 Therapeutic Trough range is 15-20 Zosyn and Vancomycin can cause an increase in the SrCr in certain individuals. Pharmacy notes that the Zosyn has been discontinued today. Wound culture has only grown out Staph Aureus. Blood Cultures still negative. Pharmacy will monitor the vancomycin trough very closely due to the increase in the patient's SrCr. Another trough will be drawn tomorrow. Since the Zosyn has been discontinued, the SrCr should begin to decrease. Continue to give Vancomycin 1500 mg IV q12hrs. Thank you. Analy Vallejo, PharmD
[2018-06-20] MEDS ORDERED: WARFARIN 5 MG TABLET PO SCH (12:00)
[2018-06-20] MEDS: NAFCILLIN IV SCH ×3 (16:35→23:29)
[2018-06-20] MEDS: NS IV SCH ×3 (16:35→23:29)
[2018-06-20] MEDS: HYDROCODONE/APAP 5mg/325mg TABLET PO PRN (20:12)
[2018-06-20] MEDS: SENNA + DOCUSATE TABLET PO SCH (20:12)
[2018-06-21] MEDS: NAFCILLIN IV SCH ×2 (03:13→09:21)
[2018-06-21] MEDS: NS IV SCH ×2 (03:13→09:21)
[2018-06-21] MEDS: NS 1,000 ML IV SCH (04:31)
[2018-06-21] MEDS: HYDROCODONE/APAP 5mg/325mg TABLET PO PRN (05:24)
[2018-06-21] MEDS ORDERED: NS 500 ML IV ONE (05:40)
[2018-06-21 07:36] VITALS: BP 119/71; PULSE 130; RESP 18; TEMP 95.8
[2018-06-21] MEDS: POLYETHYL GLYCOL 3350 17gm PACKET PO SCH (08:10)
[2018-06-21] MEDS: ASPIRIN *EC* 81 MG TABLET PO SCH (08:10)
[2018-06-21] MEDS: CARVEDILOL 6.25 MG TABLET PO SCH (08:10)
--- NOTE | 2018-06-21 08:14 | Ultrasound Report ---
EXAM: US renal LT HISTORY: acute renal failure COMPARISON: No prior studies available for comparison. FINDINGS: RIGHT KIDNEY: Surgically absent LEFT KIDNEY: The left kidney measures 13.6 x 6.9 x 6.8 cm. The left kidney demonstrates normal echotexture and the left renal cortex and central echogenic complex are well-maintained. The left kidney demonstrates normal color Doppler flow. There is mild prominence of the left renal pelvis measuring 2 cm in maximum dimension. There is no tarik hydronephrosis. No sonographically discernible discrete cystic or solid lesions or calculi are seen. BLADDER: Images were not obtained over the urinary bladder. IMPRESSION: 1. Left kidney appears normal size and contour showing no tarik hydronephrosis/obstructive uropathy. No discrete lesions are seen on the left kidney. There is mild prominence of the left renal pelvis which may be secondary to a normal variant extrarenal pelvis. 2. The right kidney is surgically absent. .
--- NOTE | 2018-06-21 08:22 | Discharge Summary ---
Discharge Information Date of admission: 06/18/18 16:07 Anticipated date of discharge: 06/21/18 Attending Physician: Leigh Ji MD Primary care physician: Los Hwang DO Consults: 06/18/18 16:00 Physician Consult [CONS] Routine Consulting Provider: Jarred Tan Reason For Exam: cellulitis, rule out nec fasc Ordering Provider has Notified [employer] Insurance Advisor: Yes Comment: I will notify 06/19/18 08:30 [facility] Consult [CONS] Routine - Discharge Diagnosis (1) Cellulitis Status: Acute Sepsis Cellulitis right lower extremity Acute kidney injury on chronic kidney disease New-onset Atrial flutter with RVR -06/21/2018 History of solitary kidney Right nephrectomy for renal cell carcinoma 2009 Mechanical aortic valve 2009 Chronic bilateral lower extremity edema, probable chronic venous stasis Morbid obesity Obstructive sleep apnea-using BiPAP at night in the hospital, not on CPAP or BiPAP at home Chronic anticoagulation with Coumadin-supratherapeutic INR on 06/21/2018 of 4.26 Hypertension-was on Norvasc at home, changed to Coreg this hospital course Mild elevation of troponin 0.145 on 06/21/2018 - Procedures Procedures: None - Laboratory Labs: 06/21/18 04:36 06/21/18 04:36 Creatinine on admission 06/18/2018 was 1.6, on 06/19/2018 was 2.1, on 2017 was 3.0 and on discharge is 3.7 White cell count was 24.3 on admission and is down to 11.6 on the day of discharge Hemoglobin was 14.7 on admission and down to 11.3 at discharge Laboratory Tests 06/18/18 06/18/18 06/18/18 13:00 13:00 13:01 INR BUN 24.0 H Creatinine 1.6 H C-Reactive Protein 52.9 H Plasma Lactate 1.7 Procalcitonin 12.73 H* TSH Vancomycin Trough 06/18/18 06/18/18 06/19/18 13:14 17:41 04:11 INR 2.60 H 2.63 H BUN Creatinine C-Reactive Protein Plasma Lactate 1.4 Procalcitonin TSH Vancomycin Trough 06/19/18 06/19/18 06/20/18 04:11 09:11 08:27 INR 2.32 H BUN 30.0 H Creatinine 2.1 H D C-Reactive Protein Plasma Lactate Procalcitonin TSH Vancomycin Trough 23.40 H* 06/20/18 06/20/18 06/20/18 08:27 08:27 08:27 INR BUN 37.0 H Creatinine 3.0 H D C-Reactive Protein 379.9 H D Plasma Lactate Procalcitonin 25.92 H* TSH Vancomycin Trough 18.55 06/21/18 06/21/18 06/21/18 04:36 04:36 04:36 INR 4.26 H BUN 44.0 H Creatinine 3.7 H D C-Reactive Protein 262.3 H Plasma Lactate Procalcitonin TSH 1.80 Vancomycin Trough Laboratory Tests 06/21/18 04:36 Troponin I 0.145 H Laboratory Tests 06/21/18 04:36 Total Bilirubin 2.00 H Conjugated Bilirubin 0.00 Unconjugated Bilirubin 0.60 ALT 52 H Alkaline Phosphatase 70 Total Protein 6.0 L Albumin 3.0 L Globulin 3.0 Albumin/Globulin Ratio 1.0 L - Microbiology Microbiology 06/18/18 13:00 Peripheral/Iv Start Blood Culture - Preliminary No Growth After 2 Days 06/18/18 13:14 Peripheral/Iv Start Blood Culture - Preliminary No Growth After 2 Days 06/18/18 18:50 Leg, Right Lower Gram Stain - Final 06/18/18 18:50 Leg, Right Lower Superficial Wound Culture - Final Staphylococcus aureus-JOSELYN, pansensitive Group C Streptococcus - Radiology Radiology: 06/18/2018 PROCEDURE: CT LE RT wo con: Technique: Axial CT images were performed through the right lower extremity without intravenous contrast. Coronal and sagittal two-dimensional reformats. Automated Exposure Control and Iterative Reconstruction dose reducing techniques were utilized. Findings: Imaging shows no evidence of subcutaneous gas. There are presumably reactive mildly prominent right inguinal lymph nodes measuring up to 1 cm in short axis dimension. There are additional enlarged lymph nodes in the right thigh medially measuring up to 1.8 cm in short axis dimension with surrounding soft tissue inflammation and induration. There is no loculated fluid collection or abscess appreciated. Bony structures are intact. No acute fracture or lytic osseous lesion. Below the knee there is fairly diffuse subcutaneous edema which becomes progressively worse towards the ankle. Again no subcutaneous gas is identified. There is mild fatty atrophy of the calf musculature. No hematoma. No localized fluid collection identified. No lytic bony lesions seen. The remaining muscular attenuation is normal. Impression: Severe cellulitis in the lower leg and calf with associated reactive adenopathy and infection tracking along the medial aspect of the right thigh. No subcutaneous gas or abscess identified. Date of Exam: 06/21/18 Type of Exam(s): US renal LT Reason for Exam(s): acute renal failure HISTORY: acute renal failure COMPARISON: No prior studies available for comparison. FINDINGS: RIGHT KIDNEY: Surgically absent LEFT KIDNEY: The left kidney measures 13.6 x 6.9 x 6.8 cm. The left kidney demonstrates normal echotexture and the left renal cortex and central echogenic complex are well-maintained. The left kidney demonstrates normal color Doppler flow. There is mild prominence of the left renal pelvis measuring 2 cm in maximum dimension. There is no tarik hydronephrosis. No sonographically discernible discrete cystic or solid lesions or calculi are seen. BLADDER: Images were not obtained over the urinary bladder. IMPRESSION: 1. Left kidney appears normal size and contour showing no tarik hydronephrosis/obstructive uropathy. No discrete lesions are seen on the left kidney. There is mild prominence of the left renal pelvis which may be secondary to a normal variant extrarenal pelvis. 2. The right kidney is surgically absent. History of Present Illness HPI: Patient is a 57-year-old male who presented to Dr. Hwang's office this morning with complaint of leg pain and swelling which started last night. This was accompanied by a fever as well. Dr. Hwang evaluated patient and recommended direct admission for inpatient treatment of cellulitis given his comorbidities including artificial aortic valve and morbid obesity. Patient reports up until last night he was feeling well. He had no injury to the leg which he is aware of. He does have a remote history of surgery to the Achilles tendon secondary to rupture. He is on Coumadin for his artificial valve. Has no history of DVT. No previous history of cellulitis. He took Tylenol this morning for the pain. He is currently complaining of significant pain. Objective Vital signs: Temperature 95.8 F L 06/21/18 07:35 Pulse Rate 130 H 06/21/18 07:35 Respiratory Rate 18 06/21/18 07:35 Blood Pressure 119/71 06/21/18 07:35 Pulse Oximetry 92 06/21/18 07:35 Height/Weight/BMI: Height 1.85 m Weight 158.1 kg Body Mass Index 45.4 Comments: 06/21/2018 Patient went into atrial flutter this morning with rapid ventricular response. Heart rate 1:30, blood pressure 119/71, O2 sat 90% on room air, afebrile Gen. the patient is alert and in no acute distress. He has low back pain. Chest is clear to auscultation anteriorly. Cardiovascular reveals a tachycardic rate with an irregularly irregular rhythm. Abdomen is soft, obese and nontender. Bowel sounds are hypoactive. Left lower extremity reveals trace edema. The leg was wrapped with Nelson wrap and I did unwrap it. He has chronic venous stasis changes on his calf. Right lower extremity shows continued edema, he has erythema in the calf and medial foot which looks a little more bright red than when I saw him 2 days ago. The erythema does not extend beyond the borders that were present 2 days ago. Skin is otherwise warm and mildly diaphoretic. No rashes Hospital Course This is a general summary of the patient's hospital course. For more details refer to the complete medical record. Hospital course: The patient was admitted on the afternoon of 06/18/2018 with cellulitis of the right lower extremity. He also had diagnosis of sepsis including fever and leukocytosis. Lactate was normal 2. The patient was started on vancomycin and Zosyn. CPK was mildly elevated on admission at 230. CT of the right lower extremity was obtained to rule out necrotizing fasciitis. Dr. Jarred Tan was consulted and followed the patient. Over the following 2 days, the patient had a decrease in his white count but unfortunately had a slow increase in his creatinine. A Pretty catheter was placed on the afternoon of 06/20/2018 and he has had approximately 1 L of urine out since that time. Creatinine continues to rise. Renal sonogram was obtained on the day of discharge with results as above. The patient did not have any hypotension during the hospital course. He had no nephrotoxins other than potentially vancomycin and Zosyn. Vancomycin trough was mildly elevated on 06/19 as noted above. On 06/20/2018 a culture of a small right lower should the wound over the Achilles resulted showing OSS today and group G strep. Vancomycin and Zosyn were discontinued and nafcillin was initiated. On the morning of 06/21/2018 the patient developed atrial flutter with rapid ventricular response. I did call and talk with Dr. Ramirez who is on-call for Dr. Edwardo Kevin. Will initiate IV amiodarone. In addition to above, the patient also has history of mechanical aortic valve and is on Coumadin. INR today is elevated at 4.26. Coumadin will be held. The patient also has history of obstructive sleep apnea. He does not wear CPAP or BiPAP at home. Here in the hospital he was placed on BiPAP at night and has tolerated this well. Because of the patient's worsening renal function and new onset atrial flutter with RVR in the setting of mechanical aortic valve, I did ask for transfer to [facility], so that he could see specialists including nephrology and cardiology. He would likely benefit from an infectious disease consult, as well. Troponin was obtained this morning and was mildly elevated at 0.145 CPK is pending Time spent with patient: greater than 35 minutes Resuscitation Status: Full Code Discharge Plan - Discharge Disposition Disposition: [address] [facility] Acute Care *Condition: Stable Reason For Visit (Visit label in EMR): cellulitis - Discharge Medications *Discharge Medications: No Action Warfarin Sodium [Coumadin] 10 mg PO DAILY Norvasc (amlodipine) 10 mg tablet 10 mg PO DAILY #90 tab aspirin 81 mg tablet,delayed release 81 mg PO DAILY tab - Discharge Packet/Instructions *Diet: Cardiac diet *Activity: Up with assist *Pain Management/Treatment: As per accepting physician *Wound Care: As per accepting physician *Notify Physician if: As per accepting physician *During Business Hours Contact: The patient is being transferred to [facility] *After Business Hours Contact: The patient is being transferred to [facility] *Pending Lab/Results: Follow up w/Provider - Referrals/Follow Up *Referrals/Follow Up: Los Hwang DO [Primary Care Provider] - - Patient Handouts Patient Handouts: Cellulitis (GEN) - Dismissal Complete Discharge Instructions are:: Complete Physician Narrative - Narrative Attestation Narrative: Date: 06/21/18 Time: 818
--- NOTE | 2018-06-21 09:19 | Progress Note ---
DATE 06/20/2018 FINDINGS Mr. Eubanks was seen this morning on rounds. He was more awake today and conversant in comparison to yesterday. Clinically, the patient does appear slightly improved. Patient informs me that he continues to have ongoing pain within his right lower extremity. He states he felt that the nursing had "wrapped his leg too tight". OBJECTIVE VITALS: Patient has been afebrile and normotensive. He does not display tachycardia. Current vitals include temperature 97.8, pulse 85, respirations 20 , blood pressure 138/81, SaO2 96% on 1 liter per nasal cannula. It does appear that his oxygen requirement is decreasing from a respiratory standpoint. HEENT: Normocephalic. Pupils are equally round and react to light and accommodation. CHEST: Clear to auscultation bilaterally. HEART: Regular rate and rhythm. Prosthetic heart click noted upon auscultation. ABDOMEN: Soft, nontender. EXTREMITIES: Attention was focused to the right lower extremity. The Nelson wrap upon the right lower extremity was removed so that the leg could be carefully evaluated. The patient does have some tenderness along the right medial thigh corresponding with the area of inflammation noted on CT scan at this location. Visibly, however, there is no evidence for erythema involving the medial thigh. Attention was then focused to the calf. The patient's anterior tibial surface and dorsum of the foot is tender upon palpation. There is no ecchymotic changes of the skin. There is no evidence for subcutaneous crepitans. The patient does not display severe pain upon palpation but is fairly tender upon palpation. Skin is quite hemosiderin laden so it is difficult to somewhat ascertain for erythema. The skin, however, is warm to the touch and does have a component of erythema. LABORATORY/RADIOGRAPHIC/REVIEW OF PATIENT'S CHART Wound cultures from the open wound overlying the posterior ankle/Achilles tendon region did reveal evidence for staph and group C strep. Staph is oxacillin sensitive. From a laboratory standpoint as well, the patient's white count continues on a downward trend at 17.8. It does have a left shift, however , with 14% bands. Hemoglobin is stable at 12.7. The patient is therapeutic with an INR of 2.32. BMP was obtained and his BUN and creatinine continue to increase at 37.0 and 3.0, respectively. CRP has increased at 379. Procalcitonin level is increased at 25.92. ASSESSMENT 57-year-old gentleman with marked cellulitis involving right lower extremity with associated medical comorbidities. Patient making slow clinical improvement. Patient with finding of strep noted upon wound culture. PLAN I am still concerned in the fact that the patient has a fair amount of tenderness noted on examination involving the right lower extremity. Is also concerning that he has bandemia and increasing CRP and procalcitonin level. I do believe that he had acute kidney injury resulting in elevation of his BUN and creatinine which is also concerning as well. I have seen patients in the past who have had Streptococcus cellulitis who have displayed somewhat of a more prolonged course of significant pain, fever and leukocytosis. It is my intuition that we are not dealing with that of necrotizing fasciitis. I do believe that clinically he would be deteriorating if this was the situation with fever, hypotension, tachycardia, etc. Furthermore, his physical findings are not highly indicative for necrotizing fasciitis. Nonetheless, I remain concerned and will continue to follow closely. Tomorrow it may be of some benefit to see if we could have Infectious Disease see the patient as well for additional evaluation. JIMENEZ
[2018-06-21 09:30] VITALS: O2SAT 94
[2018-06-21] MEDS ORDERED: AMIODARONE 150 MG in NS 100 ML IV ONE (09:30)
[2018-06-21] MEDS ORDERED: AMIODARONE 450 MG in NS 250ml 250 ML IV SCH (09:40)
--- NOTE | 2018-06-21 09:51 | Pharmacy Consult ---
Pharmacy Consult-Warfarin - Laboratory Information 06/20/18 06/21/18 06/21/18 08:27 04:36 04:36 Hgb 12.7 L 11.3 L D Hct 39.3 L 35.7 L INR 4.26 H AST ALT Albumin 06/21/18 04:36 Hgb Hct INR AST 72 H D ALT 52 H Albumin 3.0 L - Consult Information COUMADIN CONSULT (RECURRING): 57 yr old male 6'1" 160.8kg admitted for cellulitis. He has an artificial aortic valve. His home med dose of warfarin is 10 mg daily. Therapeutic INR range is 2-3. He was on Zosyn and Vancomycin for his cellulitis but they have been discontinued and Nafcillin was started. Nafcillin can increase the INR. DATE INR DOSE 06/18 2.60 10 mg 06/19 2.63 7.5 mg 06/20 2.32 10 mg 06/21 4.26 Hold today The INR is 4.26 and the patient has just been started on Amiodarone so will hold warfarin today. The Pharmacy will continue to monitor the INR and adjust the warfarin dose as needed. Thanks for the Protocol, Uday Galvez, Pharmacist
[2018-06-21] MEDS ORDERED: AMIODARONE 900 MG in NS 500ml 500 ML IV SCH (15:40)
--- NOTE | 2018-06-22 08:40 | Progress Note ---
DATE: 06/21/2018 FINDINGS Mr. Eubanks was seen earlier this morning on rounds prior to his discharge. Mr. Eubanks was complaining of ongoing pain to his right lower extremity this morning on rounds. He stated overall he was stable. He denied increasing pain but stated that it "continued to hurt." VITALS: Temperature 95.8. The patient did develop tachycardia earlier this morning and his pulse was 130. Respiratory rate 18. Blood pressure 119/71. SAO2 94% on room air. HEENT: Normocephalic. Pupils are equally round and react to light and accommodation. CHEST: Clear to auscultation bilaterally. HEART: Tachycardic in nature. I was unable to appreciate his prosthetic heart click today as a result of his increased heart rate. ABDOMEN: Soft, nontender. EXTREMITIES: Attention was focused to his right lower extremity earlier this morning. Overall the leg remained stable in its appearance. I did not see any beginning of bullae or blistering of the skin. The skin was hemosiderin laden. Upon palpation the patient continued to have a fair amount of tenderness involving his right foot, right calf region, as well as the medial thigh. I did not appreciate any evidence for subcutaneous crepitus. Laboratory/RADIOGRAPHIC EVALUATION The patient had a CBC today and his white count was on a downward trend to 11, 000. Hemoglobin is overall stable at 11. He still had bandemia of 9% and 84 segs. His INR increased this morning to 4.26. His BUN and creatinine increased to 44.0 and 3.7 respectively. Total creatinine kinase was elevated at 400. Troponin was elevated this morning 0.145. CRP was slightly down at 262.3. ASSESSMENT 57-year-old male with multiple medical comorbidities who presented with marked right lower extremity cellulitis. Patient with new onset of atrial flutter with rapid ventricular rate, acute kidney injury on top of chronic kidney disease. Patient with minimal elevation of troponin level. PLAN Earlier this morning I was concerned about the patient so I had called Dr. Ji, the hospitalist taking care of Mr. Eubanks. Dr. Ji had already informed me that she had decided to transfer the patient to [place] for further care to a larger tertiary care facility. I concurred that I felt that this was the best option for Mr. Eubanks at this point in time. The [facility] subsequently transferred. [facility]
--- NOTE | 2018-06-22 11:26 | Echocardiogram ---
DATE OF PROCEDURE: June 21, 2018 REFERRING PHYSICIAN: Dr. Leigh Ji This is a two-dimensional echo with spectral Doppler, color-flow and M-mode. Left atrial dimension is normal. Left ventricle end-diastolic dimension is increased. Left ventricle wall thickness increased. LV systolic function is normal with ejection fraction of about 60%. Right atrium is normal. Right ventricle is normal. Aortic root dimension is normal. Mitral valve is morphologically normal. Aortic valve is a mechanical prosthetic valve which is well seated with appropriate function. There is no aortic insufficiency. Transaortic velocities are increased with peak velocity of 2.27 meters per second with peak gradient of 21 and mean gradient of 13. Tricuspid valve shows trace of tricuspid regurgitation with estimated pulmonary artery systolic pressure of 31 which is at the upper limits of normal. Pulmonary valve shows no pulmonary insufficiency. There is no pericardial effusion. IMPRESSION 1. Normal LV systolic function with ejection fraction of about 60%. 2. Left ventricular hypertrophy. 3. Left ventricular dilation. 4. Mechanical prosthetic aortic valve with appropriate function. 5. Trace of tricuspid regurgitation with estimated pulmonary artery systolic pressure of 31. MTDD
--- NOTE | 2018-06-28 15:50 | Ultrasound Report ---
EXAM: Bilateral lower extremity arterial duplex Doppler HISTORY: Eval blood flow to leg COMPARISON: No prior studies available for comparison. Arterial duplex Doppler interrogation of both lower extremities was performed. Spectral analysis was utilized. The examination is limited secondary to bandages in place limiting evaluation/ penetration FINDINGS: Triphasic and biphasic flow characteristics were visualized above the trifurcation with monophasic flow seen below the trifurcation Peak systolic velocities for the right lower extremity are follows: Right [employer] 142 cm/s Proximal right SFA 138 cm/s Mid right SFA 134 cm/s Distal right SFA 130 cm/s Right popliteal artery 104 cm/s Right GENIE proximal 70 cm/s Right GENIE distal 65 cm/s Proximal right [employer]ICE TECHNICIAN 63 cm/s (retrograde flow) Distal right [employer] SERVICE TECHNICIAN 68 cm/s Right dorsalis pedis artery 76 cm/s IMPRESSION: 1. Examination was limited, see above discussion. 2. No evidence of hemodynamic significant stenosis. 3. Reduced phasicity in the distal dorsalis pedis artery. 4. Retrograde flow was seen in the proximal right BATTER[employer] SERVICE TECHNICIAN. .
== END 2018-06-21 10:09 | disposition short-term general hospital (02) | DRG 872 ==
LOC: MED
PROVIDERS: ADMIT Internal Medicine; ATTEND Internal Medicine